=== PATIENT | male | born 1960 | race Caucasian/White ===

== ENCOUNTER 2017-09-25 17:23 | Emergency (ER) | payer BC ==
[~2017-09-25] VITALS: Ht 172.7 cm; Wt 147.0 kg
[2017-09-25 17:31] VITALS: Ht 172.7 cm; Wt 147.0 kg
[2017-09-25 18:15] LABS: BASOPHIL % 0.3 % (0-2); PLATELET COUNT 220 x10^3mcL (130-400); RED CELL DISTRIBUTION WIDTH 12.8 % (11.5-14.5)
[2017-09-25 18:30] LABS: CALCIUM 8.9 mg/dL (8.5-10.1); CARBON DIOXIDE 26.4 mmol/L (21-32); CHLORIDE SERUM 98 mmol/L (98-107); CREATININE SERUM 1.1 mg/dL (0.7-1.3); GFR1 > 60 mL/min; GLUCOSE SERUM 150 mg/dL (74-106); POTASSIUM SERUM 3.1 mmol/L (3.5-5.1); SODIUM SERUM 136 mmol/L (136-145)
[2017-09-25 18:35] LABS: ALBUMIN 3.9 g/dL (3.4-5.0); ALKALINE PHOSPHATASE 46 U/L (46-116); ALT/SGPT 63 U/L (16-63); AST/SGOT 24 U/L (15-37); BILIRUBIN TOTAL 0.98 mg/dL (0.20-1.00); CHOLESTEROL 115 mg/dL (<200); HDL CHOLESTEROL 31 mg/dL (40-60); PHOSPHOROUS 2.8 mg/dL (2.5-4.9); TOTAL PROTEIN, SERUM 6.6 g/dL (6.4-8.2); URIC ACID 7.2 mg/dL (3.5-7.2)
[2017-09-25 19:38] VITALS: BP 158/90
== END 2017-09-25 19:39 | disposition home or self-care (01) ==
LOC: ED 17:23
PROVIDERS: Emergency Medicine
DX: R55 Syncope and collapse (principal); R42 Dizziness and giddiness; E87.6 Hypokalemia; R53.1 Weakness; E11.9 Type 2 diabetes mellitus without complications; I10 Essential (primary) hypertension
CPT/HCPCS: 36415; 82962; 83880